=== PATIENT | male | born 1950 | race Caucasian/White ===

== ENCOUNTER 2023-12-03 19:26 | Emergency (ER) | payer MEDICARE, BC | END 2023-12-03 21:24 | disposition home or self-care (01) | LOC: JP.ED 19:26 | DX: S70.12XA Contusion of left thigh, initial encounter (principal); E78.00 Pure hypercholesterolemia, unspecified; Z88.1 Allergy status to other antibiotic agents; Z79.899 Other long term (current) drug therapy; W55.12XA Struck by horse, initial encounter | CPT/HCPCS: 73552-26-LT; 73552-LT; 73562-26-LT; 73562-LT; 99282; 99283 ==